=== PATIENT | female | born 1955 | race Caucasian/White ===

== ENCOUNTER 2025-02-01 13:35 | Emergency (ER) | payer MEDICAID, MEDICARE, OTHER ==
[~2025-02-01] VITALS: Ht 167.6 cm; Wt 70.0 kg
[2025-02-01 13:41] VITALS: O2SAT 98
[2025-02-01] MEDS ORDERED: ACET-2708 MT (15:48)
[2025-02-01] MEDS: ACETAMINOPHEN 325MG TABLET PO ONE (16:09)
[2025-02-01 16:10] VITALS: BP 158/78; PULSE 74; RESP 16; TEMP 37.1; O2SAT 100
== END 2025-02-01 16:15 | disposition home or self-care (01) ==
LOC: ER 13:35
DX: M25.561 Pain in right knee (principal); M25.562 Pain in left knee; R73.03 Prediabetes; R51.9 Headache, unspecified
CPT/HCPCS: 82962; 99284